=== PATIENT | female | born 1985 | race Caucasian/White ===

== ENCOUNTER 2023-03-05 09:12 | Emergency (ER) | payer OTHER, SELFPAY ==
[2023-03-05 09:10] VITALS: BP 110/69; PULSE 66; RESP 14; TEMP 36.6; O2SAT 100; BMI 20.7
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
[2023-03-05] MEDS: IBUPROFEN 400 MG TABLET 800 MG PO (10:28)
== END 2023-03-05 10:30 | disposition home or self-care (01) ==
PROVIDERS: Emergency Provider Emergency Medicine
DX: S16.1XXA Strain of muscle, fascia and tendon at neck level, initial encounter (principal); V89.2XXA Person injured in unspecified motor-vehicle accident, traffic, initial encounter
CPT/HCPCS: 72125; 99284